=== PATIENT | female | born 1965 | race Two or more races ===

== ENCOUNTER 2025-07-08 11:23 | Emergency (ER) | payer MEDICAID, SELFPAY ==
[2025-07-08 11:27] VITALS: BP 163/90; PULSE 100; RESP 18; TEMP 37; O2SAT 96
[2025-07-08 11:29] VITALS: PULSE 96; RESP 18; O2SAT 97; BMI 23.1
--- NOTE | 2025-07-08 11:32 | XR_ITS ---
Examination: Knee, left, 3 views Technique: Knee AP, lateral, oblique 3 views Date and time of exam: July 08, 2025, 1212 hours INDICATIONS: Patient fell today within to the knee, knee pain. FINDINGS: No fracture or dislocation. No foreign body IMPRESSION: No fracture or dislocation
--- NOTE | 2025-07-08 11:32 | XR_ITS ---
Examination: CT brain head without contrast. 2-D sagittal coronal reconstructions Date and time of exam: July 08, 2025, 1203 hours INDICATIONS: Ground-level fall today with injury to the head, head pain, patient is anticoagulated CTDI: vol (mGy): 47.6 DLP: (mGycm): 919 Technique: Multiple CT axial sections of the brain have been obtained, 5 mm slice thickness. Contrast has not been administered. 2-D sagittal, coronal reconstructions have been obtained Low dose protocols were performed. One or more of the following dose reduction techniques were used; automated exposure control, adjustment of the mA and/or KV according to patient size, use of iterative reconstruction technique. Findings: No significant ventricular enlargement. 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 No mass effect or midline shift Basal cisterns are not remarkable. Fourth ventricle is midline. Cranial vault intact. Impression: Negative for acute hemorrhage, mass effect or midline shift
--- NOTE | 2025-07-08 11:32 | XR_ITS ---
EXAMINATION: PA chest single view TECHNIQUE: Upright PA chest single view Date and time: July 08, 2025, 12:21 p.m. INDICATIONS: Ground-level fall today with injury to the chest, chest pain FINDINGS: Normal heart size Lungs are clear, no pneumothorax Clavicles ribs appear intact IMPRESSION: No pneumothorax pulmonary contusion or hemothorax
--- NOTE | 2025-07-08 11:32 | XR_ITS ---
Examination: CT cervical spine without contrast 2-D sagittal reconstructions 2-D coronal reconstructions 3-D reconstructions. Exam date and time: July 08, 2025, 12 noon INDICATIONS: Ground-level fall today with injury to the neck, neck pain CTDI:vol (mGy) 14.8 DLP: (mGycm) 319 Technique: Multiple 2 mm axial sections of the cervical spine have been obtained. The coronal and sagittal reconstructions have been obtained. 3-D reconstructions have been obtained. Low dose protocols were performed. One or more of the following dose reduction techniques were used; automated exposure control, adjustment of the mA and/or KV according to patient size, use of iterative reconstruction technique. Findings: Axial sections demonstrate intact base of the skull. C1 exhibit satisfactory relationship to the odontoid. No acute cervical vertebral body fracture seen. Alignment posterior spinous processes satisfactory. Impression: No acute cervical fracture.
[2025-07-08 11:36] VITALS: BP 169/90; PULSE 98; RESP 20; O2SAT 96
--- NOTE | 2025-07-08 11:36 | PD.EDADULT ---
ED General RME/HPI General Chief complaint: Fall Stated complaint: FALL Time Seen by Provider: 07/08/25 11:32 Arrival date/time: 07/08/25 11:23 CC: Left-sided hip pain, left knee pain HPI patient had a syncopal event while in the bathroom and a charter bus taking a charter from [place] to [place]. The patient states recently discharged from [facility] for stroke. The patient is a known diabetic. EMS report elevated blood pressure, and witnesses state the patient was motionless on the floor of the bus for several minutes and then lifted herself back up and ambulated into her seat. Bus drivers declined to take her further and patient was encouraged to come with EMS to the ER to get her checked out . Patient denies dizziness blurred vision nausea vomiting shortness of breath or difficulty breathing. Headache is located to the left parietal area where the patient apparently struck her head. He also complaining of the left knee pain. EMS reports witnessed ambulation. Patient is awake alert oriented stating her blood sugars run high . The patient is on Plavix and aspirin. Related Data Allergies Allergy/AdvReac Type Severity Reaction Status Date / Time morphine Allergy Verified 07/08/25 11:36 Review of Systems Review of Systems Narrative Review of Systems: GEN: No fever, no chills, no weight loss EYES: No discharge, no visual changes, no pain HEENT: No ear pain, no congestion, no sore throat PULM: No shortness of breath, no cough, no congestion CV: No chest pain, no dyspnea on exertion, no palpitations GI: No nausea, no vomiting, no diarrhea, no pain, no constipation : No frequency, no urgency, no dysuria MUSC/SKEL: + joint pain, no back pain SKIN: No rash PSYCH: No hallucinations, no depression HEME/LYMPH: No easy bleeding or bruising tendencies NEURO: No weakness, no headache Past Medical History Social History SMOKING STATUS: Light (< 1 pack/day) ED Exam Narrative Physical exam: [General: Thin, borderline emaciated but not in any acute distress Head normocephalic, no step-off hematoma induration ecchymosis or depression. Tenderness to the left parietal region HEENT: Eyes pupils are PERRLA EOMs are intact no entrapment mouth [place] dry membranes uvula is midline swallow symmetrical phonation is normal Nose no rhinorrhea or otorrhea no raccoon's eyes or Khan sign no facial asymmetry or bogginess. Within acceptable limits Neck is supple nontender no JVD no edema Chest equal chest rise nontender to palpation Respiratory: Clear to auscultation no wheezes crackles or rubs CV: Rate rhythm is regular no murmurs rubs or clicks Abdomen is soft nontender no masses positive bowel sounds all 4 quadrants Back: No CVA tenderness no spinous process tenderness from cervical spine thoracic and lumbar spine Skin: Intact no petechiae rash induration ulceration or crepitus Extremities: Decreased range of motion of the left knee secondary to pain no significant edema erythema ecchymosis cap refill in the left lower extremity less than 2 seconds neurosensory intact. Moving all other extremities against resistance cap refill less than 2 seconds neurosensory intact Neuro: Awake alert oriented x3 Glascow coma 15 no focal deficits] Course Course Course Narrative: Glucose is elevated however beta hydroxy is normal, there is no anion gap. Patient is awake alert oriented nontoxic-appearing has had no deterioration neurologic status with a reexamination at 1344 at this time we will discharge the patient home knee contusion scalp contusion and hyperglycemia. Patient is in agreement with this plan Quality Measures none Orders Category Date Time Status Glucose [Bedside Blood Glucose] NOW Care 07/08/25 11:45 Active Saline [Insert IV] NOW Care 07/08/25 11:[address] cervical spine wo con Stat Exams 07/08/25 11:[address] head/brain wo con Stat Exams 07/08/25 11:32 Completed XR chest 1V Stat Exams 07/08/25 11:32 Completed XR knee LT 3V Stat Exams 07/08/25 11:32 Completed Beta Hydroxybutyrate Stat Lab 07/08/25 11:42 Completed CBC Stat Lab 07/08/25 11:42 Completed CMP [Comprehensive Metabolic Panel] Stat Lab 07/08/25 11:42 Completed Urinalysis, C/S if Indicated Stat Lab 07/08/25 12:20 Completed Urine Culture Stat Lab 07/08/25 12:20 Received Insulin Regular Med 07/08/25 13:35 Discontinued 10 unit SC X1 ONE Ringers Lactated 1000 ml [Lactated Ringers] 1,000 ml Med 07/08/25 11:34 Discontinued IV 999 mls/hr Vital Signs Vital signs: Vital Signs Temperature 98.6 F 07/08/25 11:27 Pulse Rate 100 07/08/25 11:27 Respiratory Rate 18 07/08/25 11:27 Blood Pressure 163/90 H 07/08/25 11:27 Pulse Oximetry (%) 96 07/08/25 11:27 Oxygen Delivery Method Room Air 07/08/25 11:27 Discharge Plan Plan Patient Disposition: HOME (Self Care) Patient condition on transfer: Stable Problem List Clinical Impression: Fall, Contusion of knee, Contusion of scalp, Hyperglycemia Patient/Caregiver Discharge Instructions Education Materials: High Blood Sugar (Hyperglycemia), ED Scalp Contusion, ED Fall with Uncertain Cause Additional Instructions: Ibuprofen or Tylenol for pain rest for the next 2 to 3 days avoid any heavy lifting or strenuous activity if there is worsening of symptoms including headache nausea vomiting chest pain or shortness just return to the emergency room immediately for further evaluation. Print Language: Hungarian Stand Alone Forms: [employer] Award Info., Work/School Release, Patient Portal Info Letter PA/FABIOLA Supervising Physician PA/MUSEUM ATTENDANT Supervising Physician: Adams Gibson ENP [facility] Clinical Information Provided by: patient and EMS Medical Records reviewed EMS Meds/Rx considered, not ordered None Labs/Rad/Tests considered, not ordered None Chronic Illness/Social Conditions Explain: Diabetes CVA Labs Labs: interpreted by me Lab(s) Interpretation(s): CBC shows no acute leukocytosis anemia thrombocytopenia CMP shows elevated blood glucose of 513 noted to recheck after 1 L fluid was 380, no other transaminitis T. bili elevation or other electrolyte imbalances. Urine shows 4+ glucose 9 RBCs 6 WBCs 6 epithelial 1+ bacteria Imaging Imaging interpretation: interpreted by me Imaging Interpretation(s): CT head and C-spine as interpreted by me read by radiology as negative for any acute finding Chest x-ray is negative Medication Administration(s) Medication Administration History Discontinued Medications Lactated Ringer's (Lactated Ringers) 1,000 mls @ 999 mls/hr IV .Q1H1M ONE Stop: 07/08/25 12:34 Last Infusion: 07/08/25 12:50 Dose: Infused Documented By: Admin: 07/08/25 11:45 Dose: 999 mls/hr Documented By: BY Insulin Human Regular (Insulin Hum Regular 1 Unit/0.01 Ml (Per Unit)) 10 unit SC X1 ONE Stop: 07/08/25 13:36 Diagnosis Differential Diagnosis ED Complaint MDM: Closed head injury neck fracture hyperglycemia
[2025-07-08] MEDS: RINGERS LACTATED 1000 ML 1,000 ML 999 ML IV (11:45)
[2025-07-08 11:48] LABS: Basophils # (Auto) 0.1 Thou/mm3 (0.0-0.2); Basophils % (Auto) 1 % (0-2.5); Eosinophils # (Auto) 0.2 Thou/mm3 (0.0-0.5); Eosinophils % (Auto) 1 % (0-10); Hematocrit 46.2 % (36.0-46.0); Hemoglobin 15.3 g/dL (12.0-16.0); Immature Granulocytes Auto 0.02 Thou/mm3 (0.00-0.00); Lymphocytes # (Auto) 2.8 Thou/mm3 (1.0-4.8); Lymphocytes % (Auto) 26 % (10-50); Mean Corpuscular HGB Conc 33.1 g/dl (31.0-37.0); Mean Corpuscular Hemoglobin 28.9 pg (25.0-35.0); Mean Corpuscular Volume 87 fL (80-100); Monocytes # (Auto) 0.7 Thou/mm3 (0.0-0.8); Monocytes % (Auto) 6 % (0-12); Neutrophils # (Auto) 7.3 Thou/mm3 (1.8-7.7); Neutrophils % (Auto) 66 % (37-80); Nucleated Red Blood Cell # 0.00 Thou/mm3 (0.00-0.00); Nucleated Red Blood Cell % 0 /100 WBC (0); Platelet Count 275 Thou/mm3 (140-440); RDW Standard Deviation 42.4 fL (36.4-46.3); Red Blood Count 5.30 Miln/mm3 (4.00-5.20); White Blood Count 11.1 Thou/mm3 (3.6-11.0)
[2025-07-08 12:33] LABS: Collection Type, Urine Clean Catch
[2025-07-08 12:51] LABS: Bacteria,Urine 1+; Bilirubin,Urine Negative (Negative); Blood,Urine Negative (Negative); Clarity,Urine Clear (Clear/Hazy); Color,Urine Lt-Yellow (Lt Yel-Yel); Glucose, Urine 4+ (Negative); Ketones,Urine Negative (Negative); Leukocyte Esterase,Urine Positive (Negative); Nitrite,Urine Positive (Negative); PH,Urine 6.0 (5.0-7.0); Protein,Urine Negative (Neg - Trace); RBC,Urine 9 /hpf (0-3); Specific Gravity,Urine 1.033 (1.001-1.035); Squamous Epithelial Cell,Urine 6 /hpf (0-5); Urobilinogen,Urine Negative mg/dL (0.0-1.0); WBC,Urine 6 /hpf (0-5)
[2025-07-08 12:53] LABS: Culture Indicated,Urine Yes
[2025-07-08 12:56] LABS: Beta Hydroxybutyrate 0.1 mmol/L (<0.6)
[2025-07-08 13:22] LABS: Alanine Aminotransferase 20 U/L (10-49); Albumin, Serum 4.7 gm/dL (3.5-5.0); Albumin/Globulin Ratio 1.7 (1.2-2.2); Alkaline Phosphatase 122 U/L (46-116); Anion Gap 11 (7-16); Aspartate Amino Transferase 18 U/L (0-34); BUN/Creatinine Ratio 18 Ratio (12-20); Bilirubin,Total 0.4 mg/dL (0.3-1.2); Blood Urea Nitrogen 14 mg/dL (9-23); Calcium 9.8 mg/dL (8.3-10.6); Calcium (Corrected) 9.8 mg/dL (8.5-10.1); Carbon Dioxide 24.1 mMol/L (20.0-31.0); Chloride 102 mMol/L (98-107); Creatinine (Component) 0.8 mg/dL (0.6-1.3); Estimated Creatinine Clearance 65.4 mL/min (>60); Globulin 2.8 gm/dL (2.3-3.5); Osmolality,Calculated 297 (275-295); Potassium 4.1 mMol/L (3.4-5.1); Sodium 137 mMol/L (136-145); Total Protein 7.5 gm/dL (5.7-8.2); eGFR > 60 See Note
[2025-07-08 13:25] LABS: Glucose 513 mg/dL (74-106)
[2025-07-08 13:33] VITALS: BP 163/75; PULSE 98; RESP 16; O2SAT 95
[2025-07-08] MEDS: INSULIN HUM REGULAR 1 UNIT/0.01 ML (PER UNIT) 5 UNIT SC (13:46)
[2025-07-08 13:54] VITALS: PULSE 97; RESP 18; O2SAT 95
== END 2025-07-08 14:12 | disposition home or self-care (01) ==
LOC: SERX 14:00
PROVIDERS: Registered Nurse General Practice; Emergency Provider Family Medicine; PCP Physician Assistant
DX: E11.65 Type 2 diabetes mellitus with hyperglycemia (principal); S00.03XA Contusion of scalp, initial encounter; S80.00XA Contusion of unspecified knee, initial encounter; Z79.82 Long term (current) use of aspirin; Z79.02 Long term (current) use of antithrombotics/antiplatelets; Y92.238 Other place in hospital as the place of occurrence of the external cause; W19.XXXA Unspecified fall, initial encounter
CPT/HCPCS: 36415; 70450; 71045; 72125; 73562; 80053; 81001; 82010; 85025; 87077; 87086; 87186; 96360; 99283; J1815; J7120